=== PATIENT | male | born 1940 | race Asian ===

== ENCOUNTER 2019-02-06 07:13 | Emergency (ER) | payer MEDICARE, MEDICAID ==
[~2019-02-06] VITALS: Ht 182.9 cm; Wt 109.7 kg
[2019-02-06] MEDS ORDERED: LISI2.5T PO (07:41)
[2019-02-06] MEDS ORDERED: WARF1TAB PO (07:41)
[2019-02-06] MEDS ORDERED: METO25TA35 PO (07:41)
[2019-02-06] MEDS ORDERED: MECLIZINE CHEWABLE 25 MG TAB ONE (08:09)
[2019-02-06] MEDS ORDERED: MECLIZINE CHEWABLE 25 MG TAB PO ONE ×2 (08:30→09:00)
[2019-02-06 08:35] LABS: BASOPHILS # (AUTO) 0.01 x10^3/uL (0-0.1); BASOPHILS % (AUTO) 0 % (0-1); EOSINOPHILS # (AUTO) 0.05 x10^3/uL (0-0.4); EOSINOPHILS % (AUTO) 1 % (1-7); LYMPHOCYTES # (AUTO) 2.19 x10^3/uL (1-3.4); LYMPHOCYTES % (AUTO) 26 % (22-44); MD NO; MEAN CORPUSCULAR HEMOGLOBIN 28.8 pg (27.5-34.5); MEAN CORPUSCULAR HGB CONC 32.4 g/dL (33.2-36.2); MEAN CORPUSCULAR VOLUME 89.1 fL (81-97); MEAN PLATELET VOLUME 9.6 fL (7.4-10.4); MONOCYTES # (AUTO) 0.35 x10^3/uL (0.2-0.8); MONOCYTES % (AUTO) 4 % (2-9); NEUTROPHILS # (AUTO) 5.95 x10^3/uL (1.8-6.8); NEUTROPHILS % (AUTO) 70 % (42-75); PLATELET COUNT 191 x10^3/uL (130-400); RED BLOOD COUNT 5.19 x10^6/uL (4.38-5.82); RED CELL DISTRIBUTION WIDTH 13.8 % (9.4-14.8)
[2019-02-06 08:43] LABS: INTERNATIONAL NORMALIZED RATIO 2.45 (0.93-1.1); PROTHROMBIN TIME 24.9 Seconds (9.6-11.5)
[2019-02-06 08:47] LABS: ALBUMIN 3.9 g/dL (3.4-5.0); ANION GAP 7 mmol/L (5-15); CALCIUM 9.2 mg/dL (8.5-10.1); CHLORIDE 112 mmol/L (98-107); CREATININE 1.23 mg/dL (0.7-1.3)
[2019-02-06 08:51] LABS: TROPONIN I < 0.015 ng/mL (0.000-0.045)
[2019-02-06 09:26] VITALS: BP 164/87
[2019-02-06] MEDS ORDERED: SODIUM CHLORIDE 0.9% 1,000ML IVBOLUS ONE (09:30)
[2019-02-06] MEDS ORDERED: SODIUM CHLORIDE 0.9% 1,000 ML IV ONE (09:30)
[2019-02-06] MEDS ORDERED: PIPERACILLIN/TAZO/PMX 3.375GM 50 ML IV ONE (09:30)
== END 2019-02-06 09:30 | disposition home or self-care (01) ==
LOC: ED 08:58
DX: H72.81 Multiple perforations of tympanic membrane (principal); R42 Dizziness and giddiness; I48.91 Unspecified atrial fibrillation
CPT/HCPCS: 36415; 71046; 80048; 82040; 83880; 84484; 85025; 85610; 93005; 99284